=== PATIENT | male | born 1990 | race African-American/Black ===

== ENCOUNTER 2025-08-18 03:09 | Emergency (ER) | payer MEDICAID ==
[~2025-08-18] VITALS: Ht 182.9 cm; Wt 88.0 kg
[2025-08-18 03:17] VITALS: O2SAT 97
[2025-08-18] MEDS: ACETAMINOPHEN 500MG TABLET PO ONE (04:08)
[2025-08-18] MEDS ORDERED: T3 PO (05:06)
[2025-08-18] MEDS ORDERED: IBUP-1455 MT (05:06)
[2025-08-18 05:10] VITALS: TEMP 36.8
[2025-08-18 05:48] VITALS: BP 138/86; PULSE 100; RESP 22; O2SAT 99
== END 2025-08-18 05:55 | disposition home or self-care (01) ==
LOC: ER 03:09
DX: S82.831A Other fracture of upper and lower end of right fibula, initial encounter for closed fracture (principal); S09.90XA Unspecified injury of head, initial encounter; Z79.899 Other long term (current) drug therapy; X50.1XXA Overexertion from prolonged static or awkward postures, initial encounter; Y93.89 Activity, other specified; Y92.89 Other specified places as the place of occurrence of the external cause; Y99.8 Other external cause status
CPT/HCPCS: 29515; 73610; 73630; 99284

== ENCOUNTER → 2025-08-20 | Emergency (ER) | payer MEDICAID ==
[~2025-08-20] VITALS: Ht 185.4 cm; Wt 84.0 kg
[~2025-08-20] MED LIST: IBUP-1455 MT; T3 PO
[2025-08-20 11:37] VITALS: BP 124/90; TEMP 37.3; O2SAT 100
[2025-08-20 11:42] VITALS: PULSE 74; RESP 18; O2SAT 99
== END ==
LOC: ER 11:25
DX: M79.89 Other specified soft tissue disorders (principal)
CPT/HCPCS: 99282; Z7610